=== PATIENT | male | born 1950 | race Caucasian/White ===

== ENCOUNTER 2017-04-01 06:10 | Day surgery (SDC) | payer OTHER, BC ==
[2017-03-31 14:46] VITALS: BMI 28.8
--- NOTE | 2017-03-31 16:10 | HP ---
History & Physical Update - History History: No Change - Physical Physical: No Change - Assessment Assessment: No Change - Plan Plan: No Change
--- NOTE | 2017-03-31 16:10 | HP ---
- Patient Scheduled date of Surgery: 04/01/17 Scheduled Surgical Procedure: Phacoemulsification and cataract extraction with PCIOL Affected Eye: Left Chief Complaint (Indication for surgery): Decreased vision affecting ADLs - Ocular History Other Eye History: Other (pvd , retinal hole os) Eye Medications: vigamox Previous Eye Surgery: s/p retina laser OS 1990s, s/p ce/pciol OD - Medical History Illnesses: Hypertension, Hypercholesterolemia, Other (gout, spinal stenosis, disc herniation) Current Medications: Ambulatory Orders Alprazolam [Xanax] 0.25 mg PO PRN PRN #0 tablet 07/12/13 Amlodipine Besylate [Norvasc -] 10 mg PO DAILY #0 tablet 07/12/13 Aspirin 81 mg PO DAILY #0 tab.chew 07/12/13 Losartan Potassium 100 mg PO DAILY #0 tablet 07/12/13 Metoprolol Succinate [Toprol XL -] 50 mg PO DAILY #0 tab.sr.24h 07/12/13 Ranitidine HCl [Zantac 75] 75 mg PO PRN PRN #0 tablet 07/12/13 Fenofibrate [Fenofibrate -] 48 mg PO HS 10/17/14 Pravastatin Sodium [Pravachol -] 40 mg PO HS 10/17/14 Allergies/Adverse Reactions: Allergies Allergy/AdvReac Type Severity Reaction Status Date / Time Penicillins Allergy Verified 03/31/17 14:38 POLLEN/DUST Allergy Uncoded 03/31/17 14:38 Ocular Examination - Best Corrected Visual Acuity Distance: Right eye: 20/20 Distance: Left eye: 20/60 glare - External/Slit Lamp Examination Abnormalities: none - Intraocular Pressure Intraocular Pressure - Right eye: 16 Intraocular Pressure-Left eye: 16 - Lens Lens: 2+ NS 2+ psc - Vitreous/Retina Vitreous/Retina: c:d 0.2 laser scars inferior cobblestoning, pvd - Special Examination M - Right eye: -4.25 M - Left eye: -5.50 K - Right eye: 41.25/41.50 x 90 K - Left eye: 41.50/41.75 x 90 AL - Left eye: 26.82 IOL bag: +17.0 d hoya 251 IOL sulcus: +16.5 d hoya 231 IOL AC: +14.5 d MTA4uo - Impression Impression: Cataract Left Eye - Plan Plan: Phacoemulsification and cataract extraction - IOL Left eye Post-hospital care will be provided in office on: 04/02/17
[~2017-04-01 06:10] MED LIST: ACETAMINOPHEN 325 MG TABLET (FP) PO PRN
[2017-04-01] MEDS ORDERED: DICLOFENAC SODIUM 0.1% OPHTHALMIC 2.5ML BOTTLE ONE (06:21)
[2017-04-01] MEDS ORDERED: CIPROFLOXACIN 0.3% EYE DROPS 5 ML BOTTLE ONE (06:21)
[2017-04-01] MEDS ORDERED: PHENYLEPHRINE 2.5% OPHTH SOLN 15 ML BOTTLE ONE (06:21)
[2017-04-01] MEDS ORDERED: TROPICAMIDE 1% OPHTH SOLN 15 ML BOTTLE ONE (06:21)
[2017-04-01 06:33] VITALS: TEMP 98.1
[2017-04-01] MEDS: TROPICAMIDE 1% OPHTH SOLN 15 ML BOTTLE OP SCH ×3 (06:46→06:59)
[2017-04-01] MEDS: PHENYLEPHRINE 2.5% OPHTH SOLN 15 ML BOTTLE OP SCH ×3 (06:46→06:59)
[2017-04-01] MEDS: DICLOFENAC SODIUM 0.1% OPHTHALMIC 2.5ML BOTTLE OP SCH ×2 (06:46→06:59)
[2017-04-01] MEDS: CIPROFLOXACIN HCL 0.3% OPHTH 2.5ML BOTTLE OP SCH ×2 (06:46→06:59)
[2017-04-01] MEDS ORDERED: TOBRAMYCIN/DEXAMETHASONE OPHTH. OINTMENT 1 TUBE ONE (07:22)
[2017-04-01] MEDS ORDERED: EPINEPHrine/PF 1 MG/1 ML (1:1,000) AMPULE ONE (07:22)
[2017-04-01] MEDS ORDERED: LIDOCAINE HCL 2% JELLY (5 ML/TUBE) ONE (07:23)
[2017-04-01] MEDS ORDERED: LIDOCAINE HCL/PF 1% SDV 5ML VIAL ONE (07:23)
[2017-04-01] MEDS ORDERED: BSS (NA/CA/MG/K) BALANCED SALT SOLUTION OPHTH SOLN 15 ML BOTTLE ONE (07:23)
[2017-04-01] MEDS ORDERED: POVIDONE-IODINE 5% OPHTHALMIC PREP 30 ML SOLUTION ONE (07:23)
[2017-04-01] MEDS ORDERED: TETRACAINE 0.5% OPHTH SOLN 2 ML BOTTLE ONE (07:23)
[2017-04-01] MEDS ORDERED: LIDOCAINE HCL 2% JELLY (5 ML/TUBE) TP ONE (07:40)
[2017-04-01] MEDS ORDERED: MIDAZOLAM HCL 2 MG/2 ML SINGLE DOSE VIAL ONE (07:43)
[2017-04-01] MEDS ORDERED: POVIDONE-IODINE 5% OPHTHALMIC PREP 30 ML SOLUTION OS ONE (07:45)
[2017-04-01] MEDS ORDERED: BSS (NA/CA/MG/K) BALANCED SALT SOLUTION OPHTH SOLN 15 ML BOTTLE IO ONE (07:55)
[2017-04-01] MEDS ORDERED: LIDOCAINE HCL 1% PRESERVATIVE FREE - 30ML VIAL IO ONE (07:55)
[2017-04-01] MEDS ORDERED: CHONDROITIN SU A/HYALUR SOD 1 KIT IO ONE (07:56)
[2017-04-01] MEDS ORDERED: EPINEPHrine/PF 1 MG/1 ML (1:1,000) AMPULE SQ ONE (07:58)
[2017-04-01] MEDS ORDERED: TOBRAMYCIN 0.3% OPHTH OINT 3.5 GM OS ONE (08:14)
--- NOTE | 2017-04-01 08:20 | OP ---
Ophthalmology Operative Note Pre-Operative Diagnosis: Cataract Affected Eye: Left Operation: Phacoemulsification and cataract extraction with PCIOL Findings: cataract left eye Post-Operative Diagnosis: Same as Pre-op Food Safety Coordinator: None Anesthesiologist: Audrey Joy Anesthesia: Topical Specimens Removed: none Estimated blood loss: none Operative Report Dictated: Yes
--- NOTE | 2017-04-01 09:02 | OP ---
DATE OF OPERATION: 04/01/2017 PREOPERATIVE DIAGNOSIS: Cataract, left eye. POSTOPERATIVE DIAGNOSIS: Cataract, left eye. PROCEDURE: Phacoemulsification and cataract extraction with insertion of posterior chamber intraocular lens, left eye. SURGEON: Umm Davila MD COST AND RISK ANALYSIS MANAGER: None. ANESTHESIA: Topical. ANESTHESIOLOGIST: Audrey Joy MD OPERATIVE PROCEDURE: The patient received 2% lidocaine gel and then was gently sedated and prepped and draped in the usual sterile fashion so as to expose only the left eye. Ophthalmic Betadine was instilled into the inferior fornix. The lashes were taped out of the surgical field. An eyelid speculum was placed into the left eye. Paracentesis was made in inferior clear cornea at the limbus. Next, 0.5 mL of nonpreserved lidocaine 1% was injected into the anterior chamber. Viscoelastic material was instilled into the anterior chamber via the paracentesis. A 2.4-mm keratome was then used to create the main incision in temporal clear cornea at the limbus. A continuous curvilinear capsulorrhexis was performed using a cystotome and Utrata forceps. Hydrodissection of the lens cortex was performed using BSS on a canula until the nucleus was noted to be freely rotating. The phacoemulsification tip was inserted via the main wound and used to sculpt 2 perpendicular grooves into the lens nucleus. The nucleus was cracked into 4 quadrants using the 2 instruments. Each quadrant was lifted out of the capsule into the iris plane and individually phacoemulsified. The remaining cortical material was then aspirated using the irrigation and aspiration port. The capsular bag was inflated using Provisc, and a preloaded Hoya lens model 251, power +17.0 diopters was injected into the capsular bag and centered using a Sinskey hook. The residual Viscoelastic material was removed from the anterior chamber using irrigation and aspiration. The wound edges were hydrated using BSS. The wound was tested for leakage. It was found to be watertight, therefore TobraDex ointment was placed into the eye and the speculum was removed from the eye and the eyelid was closed. A sterile dressing and shield were placed over the eye, and the patient was transferred to the recovery room in stable condition, told to follow up in 1 day. UMM DAVILA M.D. [id number]
[2017-04-01 10:11] VITALS: BP 118/61; PULSE 58
[2017-04-01] MEDS ORDERED: ERTAPENEM SODIUM 1 GM VIAL ONE (10:59)
== END 2017-04-01 09:10 | disposition home or self-care (01) ==
LOC: JASU-SURG 06:10
PROVIDERS: ATTEND Ophthalmology
PROC: 08RK3JZ Replacement of Left Lens with Synthetic Substitute, Percutaneous Approach (ICD-10-PCS; principal; 2017-04-01 07:30)
DX: H26.9 Unspecified cataract (principal)

== ENCOUNTER 2020-04-22 05:12 | Day surgery (SDC) | payer OTHER, BC ==
[2020-04-17 14:05] VITALS: BMI 29.5
[2020-04-22 09:04] VITALS: TEMP 98.7
[2020-04-22 09:56] VITALS: BP 142/70; PULSE 71
== END 2020-04-22 10:06 | disposition home or self-care (01) ==
LOC: JASU-ENDO 05:12
PROVIDERS: ATTEND Internal Medicine Gastroenterology
PROC: 0DBH8ZX Excision of Cecum, Via Natural or Artificial Opening Endoscopic, Diagnostic (ICD-10-PCS; principal; 2020-04-22 08:00)
DX: Z09 Encounter for follow-up examination after completed treatment for conditions other than malignant neoplasm (principal); Z86.010 Personal history of colon polyps; D12.0 Benign neoplasm of cecum; I10 Essential (primary) hypertension; G47.30 Sleep apnea, unspecified; Z99.89 Dependence on other enabling machines and devices; E78.5 Hyperlipidemia, unspecified; R01.1 Cardiac murmur, unspecified; M10.9 Gout, unspecified; M16.11 Unilateral primary osteoarthritis, right hip; N40.0 Benign prostatic hyperplasia without lower urinary tract symptoms; K57.30 Diverticulosis of large intestine without perforation or abscess without bleeding; K55.20 Angiodysplasia of colon without hemorrhage; K64.8 Other hemorrhoids
CPT/HCPCS: 88305-TC

== ENCOUNTER 2022-12-17 07:26 | Day surgery (SDC) | payer OTHER, BC ==
[2022-12-10 14:22] VITALS: BMI 30.2
[2022-12-17 08:23] LABS: HEMOGLOBIN 15.4 G/dL (11.7-16.9); MCH 30.4 pg (25.7-33.7); MCHC 32.7 g/dl (32.0-35.9); MEAN CELL VOLUME 92.8 fl (80-96); MEAN PLT VOLUME 8.4 fl (7.5-11.1); PLATELET COUNT 254.9 10^3/uL (134-434); RBC 5.06 10^6/uL (4.00-5.60); RDW 13.9 % (11.9-15.9)
[2022-12-17] MEDS ORDERED: EPINEPHrine 1:1,000 1,000 MCG/ML ML ONE (08:34)
[2022-12-17] MEDS ORDERED: BUPIVACAINE HCL/PF 0.5% (5 MG/ML) 30 ML VIAL IJ ONE (08:41)
[2022-12-17] MEDS ORDERED: DEXAMETHASONE SOD PHOSPHATE/PF 10 MG/ML SDV ONE (08:41)
[2022-12-17 08:55] LABS: PLATELET ESTIMATE ADEQUATE
[2022-12-17] MEDS ORDERED: MIDAZOLAM HCL 2 MG/2 ML SINGLE DOSE VIAL ONE (09:17)
[2022-12-17] MEDS ORDERED: PROPOFOL 40 ML ONE (09:17)
[2022-12-17] MEDS ORDERED: BUPIVACAINE HCL/PF 0.5% (5MG/ML) 10 ML VIAL ONE (11:29)
[2022-12-17] MEDS ORDERED: PROPOFOL 20 ML ONE (12:05)
[2022-12-17] MEDS ORDERED: ONDANSETRON 4 MG/2 ML VIAL ONE (15:52)
[2022-12-17] MEDS ORDERED: MINERAL OIL/PETROLATUM,WHITE 3.5 GM TUBE ONE (15:52)
[2022-12-17] MEDS ORDERED: ceFAZolin SODIUM 1 GM VIAL ONE (15:52)
[2022-12-17] MEDS ORDERED: DEXAMETHASONE SOD PHOSPHATE 4 MG/1 ML VIAL ONE (15:52)
[2022-12-17] MEDS ORDERED: ROCURONIUM BROMIDE 50 MG/5 ML SYRINGE ONE (15:52)
[2022-12-17] MEDS ORDERED: ONDANSETRON 4 MG/2 ML VIAL IVPUSH PRN (16:43)
[2022-12-17] MEDS ORDERED: oxyCODONE HCL 5 MG TABLET PO PRN ×2 (16:43)
[2022-12-17 18:25] VITALS: TEMP 97
[2022-12-17 19:04] VITALS: PULSE 70
[2022-12-17 19:08] VITALS: BP 116/72; RESP 19
== END 2022-12-17 19:08 | disposition home or self-care (01) ==
LOC: FASU 07:26
PROVIDERS: ATTEND Orthopaedic Surgery Sports Medicine
PROC: 0RNK4ZZ Release Left Shoulder Joint, Percutaneous Endoscopic Approach (ICD-10-PCS; principal; 2022-12-17 12:50)
PROC: 0LS44ZZ Reposition Left Upper Arm Tendon, Percutaneous Endoscopic Approach (ICD-10-PCS; 2022-12-17 12:50)
PROC: 0RHK44Z Insertion of Internal Fixation Device into Left Shoulder Joint, Percutaneous Endoscopic Approach (ICD-10-PCS; 2022-12-17 12:50)
DX: M75.121 Complete rotator cuff tear or rupture of right shoulder, not specified as traumatic (principal); M75.41 Impingement syndrome of right shoulder; M75.21 Bicipital tendinitis, right shoulder; X58.XXXA Exposure to other specified factors, initial encounter; Y92.9 Unspecified place or not applicable; Y93.9 Activity, unspecified
CPT/HCPCS: 29826; 29827; 29828; C1713; 36415; 85025; 94760; C1763; C1883; C1889